=== PATIENT | male | born 1990 | race Caucasian/White ===

== ENCOUNTER 2018-03-23 03:39 | Emergency (ER) | payer MEDICAID ==
--- NOTE | 2018-03-23 04:21 | ERPHSYRPT ---
- History of Present Illness Time Seen by Provider: 03/23/18 04:14 Source: patient Exam Limitations: no limitations Patient Subjective Stated Complaint: pt co toothache and edema to left lower jaw ; pt states he cannot get into the dentist for 2 more weeks and this am woke up with severe pain and swelling in left jaw. Triage Nursing Assessment: pt a&o x3; skin p, w, & d; ambulated to room per self ; acute distress noted; family in waiting room. Physician History: pt has toothache now draining pus freely and tender left lower molar reproducible with percussion but no remaining fluctuance to drain; swallowing OK in ER. nontender anterior neck and soft floor of mouth and digastric triangles; Timing/Duration: gradual onset Severity: moderate ENT Location: dental Prearrival Treatment: over the counter meds Modifying Factors: Improves With: nothing Associated Symptoms: facial pain/swelling Allergies/Adverse Reactions: Penicillins Allergy (Mild, Verified 03/23/18 03:54) Hives Hx Tetanus, Diphtheria Vaccination/Date Given: Yes Hx Influenza Vaccination/Date Given: Yes (2017) Hx Pneumococcal Vaccination/Date Given: No Immunizations Up to Date: Yes - Review of Systems Constitutional: No Fever, No Chills Eyes: No Symptoms Ears, Nose, & Throat: Other (tender left lower molar) Respiratory: No Cough, No Dyspnea Cardiac: No Chest Pain, No Edema, No Syncope Abdominal/Gastrointestinal: No Abdominal Pain, No Nausea, No Vomiting, No Diarrhea Genitourinary Symptoms: No Dysuria Musculoskeletal: No Back Pain, No Neck Pain Skin: No Rash Neurological: No Dizziness, No Focal Weakness, No Sensory Changes Psychological: No Symptoms Endocrine: No Symptoms Hematologic/Lymphatic: No Symptoms Immunological/Allergic: No Symptoms All Other Systems: Reviewed and Negative - Past Medical History Pertinent Past Medical History: No Neurological History: No Pertinent History ENT History: No Pertinent History Cardiac History: No Pertinent History Respiratory History: No Pertinent History Endocrine Medical History: No Pertinent History Musculoskeletal History: No Pertinent History GI Medical History: No Pertinent History History: No Pertinent History Psycho-Social History: Bipolar Male Reproductive Disorders: No Pertinent History - Past Surgical History Past Surgical History: No Neuro Surgical History: No Pertinent History Cardiac: No Pertinent History Respiratory: No Pertinent History Gastrointestinal: No Pertinent History Genitourinary: No Pertinent History Musculoskeletal: No Pertinent History Male Surgical History: No Pertinent History - Social History Smoking Status: Current some day smoker How long have you smoked: 5 years Exposure to second hand smoke: Yes Drug Use: none Patient Lives Alone: No - Nursing Vital Signs Nursing Vital Signs: Initial Vital Signs Temperature 98.1 F 03/23/18 03:47 Pulse Rate 92 H 03/23/18 03:47 Respiratory Rate 16 03/23/18 03:47 Blood Pressure 138/84 03/23/18 03:47 O2 Sat by Pulse Oximetry 98 03/23/18 03:47 Pain Scale Pain Intensity 10 - Physical Exam Eye Exam: bilateral eye: normal inspection, PERRL, EOMI Ear Exam: bilateral ear: auricle normal Nasal Exam: normal inspection Throat Exam: pharynx normal, dental tenderness, No excessive drooling, No tongue swollen, No trismus, No uvula swelling, No voice changes Neck Exam: normal inspection, non-tender, supple, full range of motion, trachea midline Cardiovascular/Respiratory Exam: chest non-tender, normal breath sounds, heart sounds normal Abdominal Exam: non-tender, soft Neurologic Exam: alert, oriented x 3, cooperative, 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, normal mood/affect, nml cerebellar function, nml station & gait Skin Exam: normal color, warm, dry SpO2 Interpretation: normal SpO2: 98 Oxygen Delivery: Room Air - Course Nursing assessment & vital signs reviewed: Yes - Progress Progress: improved Progress Note: 03/23/18 04:25 pt advised of risk/benefit of additional possible testing to exclude abcess spread and and he prefers to begin outpt tx and see dentist and return meantime if not improving Counseled pt/family regarding: diagnosis, need for follow-up - Departure Time of Disposition: 04:26 Departure Disposition: Home Clinical Impression: dental apical abcess draining left lower Condition: Good Critical Care Time: No Referrals: DOCTOR,NO FAMILY [Primary Care Provider] - Instructions: Dental Pain (DC), Tooth Abscess (DC) Additional Instructions: you have an abcess of the left lower molar and need to see the dentist MIRANDA for definitive therapy; this is draining pus now and needs to be swished with oral peroxide , or mouthwash such as listerine 4 times a day and spit out; this abcess may spread so return if swelling increases, vomiting, or any trouble swallowing or breathing; Prescriptions: Cephalexin Mh 500 mg [Keflex 500 mg] 500 mg PO QID #60 capsule Hydrocodone/Acetaminophen [[place] 5-325 Tablet] 1 each PO Q4-6HPRN PRN 7 Days # 14 tablet MDD 4 PRN Reason: Pain
[2018-03-23] MEDS ORDERED: KEFLEX 500 MG ONE (04:49)
[2018-03-23] MEDS ORDERED: NORCO 5/325 MG ONE (04:50)
[2018-03-23] MEDS: NORCO 5/325 MG PO ONE (04:53)
[2018-03-23] MEDS: KEFLEX 500 MG PO ONE (05:02)
[2018-03-23 05:16] VITALS: BP 132/84; PULSE 82; O2SAT 96
== END 2018-03-23 05:10 | disposition home or self-care (01) ==
LOC: ED 03:39
DX: K04.7 Periapical abscess without sinus (principal); Z72.0 Tobacco use
CPT/HCPCS: 99283; A9270-GY

== ENCOUNTER 2020-06-27 20:16 | Emergency (ER) | payer MEDICAID, OTHER ==
[2020-06-27 20:28] VITALS: O2SAT 99
[2020-06-27] MEDS ORDERED: XYLOCAINE 1% HCL 20 ML MDV ONE (20:44)
[2020-06-27] MEDS ORDERED: Cleocin Phosphate IV 600 MG/4 ML ONE (20:47)
[2020-06-27] MEDS: Cleocin Phosphate IV 600 MG/4 ML IM STA (20:49)
--- NOTE | 2020-06-27 20:50 | ERPHSYRPT ---
- History of Present Illness Time Seen by Provider: 06/27/20 20:30 Source: patient Exam Limitations: no limitations Patient Subjective Stated Complaint: Patient states " I was walking around barefoot at home and stepped on glass and sliced the bottom of my right foot". Triage Nursing Assessment: Patient arrived to ED and ambulated to room without difficulty. Patient A/O times 4. Patient able to follow instructions without difficulty. Patient noted with cut on bottom of right foot that measures 1CM and irregular. No active bleeding upon arrival to ED. No odor present. No S/S of infection noted. No swelling noted. Patient stated he pulled all the glass out. Patient did state that it bleed large amounts after pulling out glass. + pedal pulses noted. Patient ROM to right foot WNL. Patient able to feel sensation and wiggle toes without difficulty. Physician History: Patient is a 30-year-old male who presents to our ED for evaluation of laceration to the right heel. Patient was at home. Patient stepped on a 1cm piece of glass. Injury occurred just prior to arrival. Patient pulled the glass out of his foot. Patient denies residual foreign body sensation. Tetanus up-to-date. Pain described as an ache that is well localized. No radiation. Pain worse with palpation. Pain improved with rest. No other injuries reported. Patient voices no other complaints concerns at this time. Timing/Duration: today Severity: mild Modifying Factors: Improves With: medication Associated Symptoms: denies symptoms Allergies/Adverse Reactions: Penicillins Allergy (Mild, Verified 06/27/20 20:29) Hives Hx Tetanus, Diphtheria Vaccination/Date Given: Yes Hx Influenza Vaccination/Date Given: No Hx Pneumococcal Vaccination/Date Given: No Immunizations Up to Date: Yes Travel Risk - International Travel Have you traveled outside of the country in past 3 weeks: No - Coronavirus Screening Are you exhibiting any of the following symptoms?: No Close contact with a COVID-19 positive Pt in past 14-21 Days: No - Review of Systems Constitutional: No Symptoms, No Fever, No Chills Eyes: No Symptoms Ears, Nose, & Throat: No Symptoms Respiratory: No Symptoms, No Cough, No Dyspnea Cardiac: No Symptoms, No Chest Pain, No Edema, No Syncope Abdominal/Gastrointestinal: No Symptoms, No Abdominal Pain, No Nausea, No Vomiting, No Diarrhea Genitourinary Symptoms: No Symptoms, No Dysuria Musculoskeletal: No Symptoms, No Back Pain, No Neck Pain Skin: No Symptoms, No Rash Neurological: No Symptoms, No Dizziness, No Focal Weakness, No Sensory Changes Psychological: No Symptoms Endocrine: No Symptoms Hematologic/Lymphatic: No Symptoms Immunological/Allergic: No Symptoms All Other Systems: Reviewed and Negative - Past Medical History Pertinent Past Medical History: No Neurological History: No Pertinent History ENT History: No Pertinent History Cardiac History: No Pertinent History Respiratory History: No Pertinent History Endocrine Medical History: No Pertinent History Musculoskeletal History: No Pertinent History GI Medical History: No Pertinent History History: No Pertinent History Psycho-Social History: Bipolar Male Reproductive Disorders: No Pertinent History - Past Surgical History Past Surgical History: No Neuro Surgical History: No Pertinent History Cardiac: No Pertinent History Respiratory: No Pertinent History Gastrointestinal: No Pertinent History Genitourinary: No Pertinent History Musculoskeletal: No Pertinent History Male Surgical History: No Pertinent History - Social History Smoking Status: Former smoker How long have you smoked: 5 years Exposure to second hand smoke: Yes Drug Use: none Patient Lives Alone: No - Nursing Vital Signs Nursing Vital Signs: Initial Vital Signs Temperature 97.9 F 06/27/20 20:26 Pulse Rate 84 06/27/20 20:26 Respiratory Rate 20 06/27/20 20:26 Blood Pressure 157/82 06/27/20 20:26 O2 Sat by Pulse Oximetry 99 06/27/20 20:26 Pain Scale Pain Intensity 8 - Physical Exam General Appearance: no apparent distress, alert Eye Exam: PERRL/EOMI, eyes nml inspection Ears, Nose, Throat Exam: normal ENT inspection, TMs normal, pharynx normal, moist mucous membranes Neck Exam: normal inspection, non-tender, supple, full range of motion Respiratory Exam: normal breath sounds, lungs clear, No respiratory distress Cardiovascular Exam: regular rate/rhythm, normal heart sounds, normal peripheral pulses Gastrointestinal/Abdomen Exam: soft, normal bowel sounds, No tenderness, No mass Back Exam: normal inspection, normal range of motion, No CVA tenderness, No vertebral tenderness Extremity Exam: normal inspection, normal range of motion, pelvis stable Neurologic Exam: alert, oriented x 3, cooperative, normal mood/affect, nml cerebellar function, sensation nml, No motor deficits Skin Exam: normal color, warm, dry, No rash Lymphatic Exam: No adenopathy SpO2 Interpretation: normal SpO2: 99 O2 Delivery: Room Air Procedures - Laceration/Wound Repair Foot Wound Location: Right (Plantar surface of right heel.) Wound Length (cm): 1 Wound's Depth, Shape: irregular, into subcut Wound Explored: no foreign body noted Irrigated: Yes Hibiclens Prep: Yes Anesthesia: 1% Lidocaine Wound Debrided: No debridement required Wound Repaired With: sutures (2 sutures placed just to keep the wound edges approximated. The closure was loose.) Suture Size/Type: 5-0, nylon Number of Sutures: 2 Layer Closure?: No Sterile Dressing Applied?: Yes Splint Applied?: No Sling Applied?: No - Course Nursing assessment & vital signs reviewed: Yes Ordered Tests: Medication Summary Discontinued Medications Generic Name Dose Route Start Last Admin Trade Name Freq PRN Reason Stop Dose Admin Clindamycin Phosphate 600 mg 06/27/20 20:39 06/27/20 20:49 Cleocin Phosphate Iv 600 Mg/4 Ml IM 06/27/20 20:40 600 mg ONCE STA Administration Clindamycin Phosphate Confirm 06/27/20 20:47 Cleocin Phosphate Iv 600 Mg/4 Ml Administered 06/27/20 20:48 Dose 600 mg .ROUTE .STK-MED ONE Lidocaine HCl Confirm 06/27/20 20:44 Xylocaine 1% Hcl 20 Ml Mdv Administered 06/27/20 20:45 Dose 3 ml .ROUTE .STK-MED ONE - Progress Progress: improved Progress Note: 06/27/20 21:06 Patient reassessed. Pain improved. Patient received a dose of clindamycin IM. Patient is allergic to sulfa and penicillin. Tetanus up-to-date. 2 simple interrupted sutures placed just to maintain wound edge approximation. The wound is not sutured close. Work note provided. Patient agrees to follow-up with his primary care doctor within 48 hours for reevaluation. Bilateral axillary crutches provided. 06/27/20 21:08 Counseled pt/family regarding: diagnosis, need for follow-up - Departure Departure Disposition: Home Clinical Impression: Foot laceration Condition: Stable Critical Care Time: No Referrals: DOCTOR,NO FAMILY [Primary Care Provider] - [facility], [ACTIVE STAFF] - Additional Instructions: Discharge/Care Plan WILDAESE MYESHA was seen on 06/27/20 in the Emergency Room. The patient was counseled regarding Diagnosis,Lab results, Imaging studies, need for follow up and when to return to the Emergency Room. Prescriptions given: Discharge Note I have spoken with the patient and/or caregivers. I have explained the patient's condition, diagnosis and treatment plan based on the information available to me at this time. I have answered the patient's and/or caregiver's questions and addressed any concerns. The patient and/or caregivers have as good understanding of the patient's diagnosis, condition and treatment plan as can be expected at this point. The vital signs have been stable. The patient's condition is stable and appropriate for discharge from the emergency department. The patient will pursue further outpatient evaluation with the primary care physician or other designated or consulting physician as outlined in the discharge instructions. The patient and/or caregivers are agreeable to this plan of care and follow-up instructions have been explained in detail. The patient and/or caregivers have received these instruction. The patient/and or caregivers are aware that any significant change in condition or worsening of symptoms should prompt an immediate return to this or the closest emergency department or call 911. Forms: Work/School Release Form Prescriptions: Clindamycin HCl 150 mg [Cleocin 150 mg Capsule] 2 cap PO QID 7 Days #56 capsule
[2020-06-27] MEDS: BACIGUENT PACKET TP ONE (21:07)
[2020-06-27] MEDS ORDERED: BACIGUENT PACKET ONE (21:07)
[2020-06-27 21:19] VITALS: BP 124/66; PULSE 72
== END 2020-06-27 21:18 | disposition home or self-care (01) ==
LOC: ED 20:16
DX: S91.311A Laceration without foreign body, right foot, initial encounter (principal); W25.XXXA Contact with sharp glass, initial encounter
CPT/HCPCS: 12001; 96372; 99284; A9270-GY

== ENCOUNTER 2021-06-06 01:47 | Emergency (ER) | payer MEDICAID, OTHER ==
[2021-06-06 02:57] VITALS: PULSE 81; O2SAT 99
--- NOTE | 2021-06-06 03:09 | ERPHSYRPT ---
- History of Present Illness Time Seen by Provider: 06/06/21 03:00 Source: patient Exam Limitations: no limitations Patient Subjective Stated Complaint: Patient c/o right sided facial swelling that started approx 24 hours ago. Patient denies trouble swallowing or breathing . States right side of mouth/face does hurt. Triage Nursing Assessment: Patient ambulated back to ED without difficulties. He is alert and oriented and answering questions appropriately. Right side of face swollen. Patient with a noted cavity in right side of mouth and also has a tooth towards the back right side of his mouth that doesn't have an obvious cavity on exam but gum around that tooth is inflammed/swollen. No SOB noted. Right side of neck also slightly swollen in lymph node area. Physician History: This is a 31-year-old white male who is allergic to penicillin and does not know if he is allergic to Keflex or not and presents with chronic poor dentition. He became concerned because in the last 24 hours is been increased swelling of his right cheek. The tenderness has also increased as well. His right upper molars are painful Timing/Duration: gradual onset Severity: mild, moderate ENT Location: facial Prearrival Treatment: over the counter meds Associated Symptoms: facial pain/swelling (Right side), tooth pain (Right upper molars) Allergies/Adverse Reactions: Penicillins Allergy (Mild, Verified 06/06/21 02:57) Hives Hx Tetanus, Diphtheria Vaccination/Date Given: Yes Hx Influenza Vaccination/Date Given: No Hx Pneumococcal Vaccination/Date Given: No Immunizations Up to Date: Yes Travel Risk - International Travel Have you traveled outside of the country in past 3 weeks: No - Coronavirus Screening Are you exhibiting any of the following symptoms?: No Close contact with a COVID-19 positive Pt in past 14-21 Days: No - Vaccine Status Have you recieved a Covid-19 vaccination: No - Review of Systems Constitutional: No Symptoms Eyes: No Symptoms Ears, Nose, & Throat: Other (Dental pain right upper molars) Respiratory: No Symptoms Cardiac: No Symptoms Abdominal/Gastrointestinal: No Symptoms Genitourinary Symptoms: No Symptoms Musculoskeletal: No Symptoms Skin: No Symptoms Neurological: No Symptoms Psychological: No Symptoms Endocrine: No Symptoms Hematologic/Lymphatic: No Symptoms Immunological/Allergic: No Symptoms All Other Systems: Reviewed and Negative - Past Medical History Pertinent Past Medical History: No Neurological History: No Pertinent History ENT History: No Pertinent History Cardiac History: No Pertinent History Respiratory History: No Pertinent History Endocrine Medical History: No Pertinent History Musculoskeletal History: No Pertinent History GI Medical History: No Pertinent History History: No Pertinent History Psycho-Social History: Bipolar Male Reproductive Disorders: No Pertinent History - Past Surgical History Past Surgical History: No Neuro Surgical History: No Pertinent History Cardiac: No Pertinent History Respiratory: No Pertinent History Gastrointestinal: No Pertinent History Genitourinary: No Pertinent History Musculoskeletal: No Pertinent History Male Surgical History: No Pertinent History - Social History Smoking Status: Former smoker How long have you smoked: 5 years Exposure to second hand smoke: No Drug Use: none Patient Lives Alone: No - Nursing Vital Signs Nursing Vital Signs: Initial Vital Signs Temperature 97.8 F 06/06/21 02:46 Pulse Rate 81 06/06/21 02:46 Respiratory Rate 20 06/06/21 02:46 Blood Pressure 172/120 06/06/21 02:46 O2 Sat by Pulse Oximetry 99 06/06/21 02:46 Pain Scale Pain Intensity 8 - Physical Exam General Appearance: no apparent distress, alert Eye Exam: bilateral eye: normal inspection, PERRL, EOMI Ear Exam: bilateral ear: auricle normal Nasal Exam: normal inspection Throat Exam: dental tenderness (Generalized dental caries and poor nutrition. There is gingivitis present in the right upper molar region. There is foul odor as well. 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, normal mood/affect, nml cerebellar function, nml station & gait, sensation nml Skin Exam: normal color, warm, dry SpO2 Interpretation: normal SpO2: 99 O2 Delivery: Room Air - Course Nursing assessment & vital signs reviewed: Yes - Progress Progress: unchanged Counseled pt/family regarding: diagnosis, need for follow-up - Departure Departure Disposition: Home Clinical Impression: Dental infection Condition: Stable Critical Care Time: No Referrals: [facility] [Primary Care Provider] - Follow up/PCP as directed Additional Instructions: Use Tylenol and ibuprofen for pain control. Take your medications as prescribed. Follow-up with a dentist later today by phone to make arrangements for dental intervention. Prescriptions: Clindamycin HCl 150 mg [Cleocin 150 mg Capsule] 2 cap PO QID #56 cap
[2021-06-06] MEDS ORDERED: NORCO 5/325 MG PO ONE (03:10)
[2021-06-06] MEDS ORDERED: CLEOCIN 150 MG CAPSULE PO ONE (03:10)
[2021-06-06] MEDS ORDERED: NORCO 5/325 MG ONE (03:22)
[2021-06-06] MEDS ORDERED: CLEOCIN 150 MG CAPSULE ONE (03:23)
[2021-06-06 03:45] VITALS: BP 134/72
== END 2021-06-06 03:40 | disposition home or self-care (01) ==
LOC: ED 01:47
DX: K04.7 Periapical abscess without sinus (principal)
CPT/HCPCS: 99283; A9270-GY